=== PATIENT | male | born 1945 | race Two or more races ===

== ENCOUNTER 2018-08-27 15:15 | Inpatient (IN) | payer MEDICARE, MEDICAID ==
[~2018-08-27] VITALS: Ht 165.1 cm; Wt 68.0 kg
[2018-08-27] MEDS ORDERED: PANTOPRAZOLE SODIUM 40 MG VIAL IV ONE (15:45)
--- NOTE | 2018-08-27 16:00 | NUR ---
Pt. BIB [facility] for blood in stool, Jamaican speaking, denies pain, A/Ox4, RR even and unlabored, speaks in clear and complete sentences, PICC line patent and intact to MARTA
[2018-08-27 16:16] LABS: BASOPHILS # (AUTO) 0.1 K/uL (0.0-8.0); BASOPHILS % (AUTO) 0.9 % (0.0-2.0); EOSINOPHILS # (AUTO) 0.4 K/uL (0.0-0.7); EOSINOPHILS % (AUTO) 6.2 % (0.0-7.0); HEMATOCRIT 36.3 % (36.7-47.1); HEMOGLOBIN 12.3 g/dL (12.5-16.3); LYMPHOCYTES # (AUTO) 1.3 K/uL (20.0-40.0); LYMPHOCYTES % (AUTO) 19.3 % (20.5-51.5); MEAN CORPUSCULAR HEMOGLOBIN 31.2 uug (23.8-33.4); MEAN CORPUSCULAR HGB CONC 34 g/dL (32.5-36.3); MEAN CORPUSCULAR VOLUME 92.4 fL (73.0-96.2); MONOCYTES # (AUTO) 0.8 K/uL (2.0-10.0); NEUTROPHILS # (AUTO) 4.3 K/uL (1.8-8.9); NEUTROPHILS % (AUTO) 61.6 % (38.5-71.5); PLATELET COUNT (AUTO) 215 K/uL (152-348); RED BLOOD CELL COUNT(AUTO) 3.93 MIL/uL (4.06-5.63); WHITE BLOOD COUNT (AUTO) 6.9 K/uL (3.6-10.2)
[2018-08-27 16:24] LABS: CARBON DIOXIDE 29 mmol/L (21-32); CHLORIDE 100 mmol/L (98-107); CREATININE 1.1 mg/dL (0.6-1.3); GLUCOSE 126 mg/dL (74-106); POTASSIUM 4.1 mmol/L (3.5-5.1); UREA NITROGEN, BLOOD 20 mg/dL (7-18)
[2018-08-27] MEDS ORDERED: PANTOPRAZOLE SODIUM 40 MG VIAL ONE (16:35)
[2018-08-27 16:39] LABS: ALANINE AMINOTRANSFERASE 21 U/L (16-63); ALKALINE PHOSPHATASE 92 U/L (50-136); ASPARTATE AMINOTRANSFERASE 15 U/L (15-37); BILIRUBIN,DIRECT 0.1 mg/dL (0.0-0.2); BILIRUBIN,TOTAL 0.2 mg/dL (0.2-1.0); LIPASE 102 U/L (73-393); TOTAL PROTEIN, SERUM 6.1 g/dL (6.4-8.2)
[2018-08-27] MEDS ORDERED: AMPI500C11 IV (16:56)
[2018-08-27] MEDS ORDERED: ATOR40TA PO (16:56)
[2018-08-27] MEDS ORDERED: LEVE500T20 PO (16:56)
[2018-08-27] MEDS ORDERED: CEFT2VIA14 IV (16:56)
[2018-08-27] MEDS ORDERED: LOSA1TAB9 PO (16:56)
[2018-08-27] MEDS ORDERED: MULT-213 PO (16:56)
[2018-08-27] MEDS ORDERED: SPIR25TA6 PO (16:56)
[2018-08-27] MEDS ORDERED: PANT40TA4 PO (16:56)
[2018-08-27] MEDS ORDERED: LOSA50TA39 PO (16:56)
[2018-08-27] MEDS ORDERED: FINA5TAB11 PO (16:56)
[2018-08-27] MEDS ORDERED: ONDANSETRON 4 MG/2 ML VIAL IV PRN (18:15)
[2018-08-27] MEDS ORDERED: MAGNESIUM HYDROXIDE 30 ML LIQUID UDC PO PRN (18:15)
[2018-08-27] MEDS ORDERED: Z GUARD REMEDY PASTE 57 GM TUBE TOP PRN (18:15)
--- NOTE | 2018-08-27 18:22 | NUR ---
Gave report to Polina HELMS,
--- NOTE | 2018-08-27 18:48 | NUR ---
Pt. taken off unit via stretcher, NAD
--- NOTE | 2018-08-27 19:50 | NUR ---
RECEIVED PATIENT IN BED. REPORT RECEIVED FROM CHARGE NURSE CONSUELO. FAMILY AND FRIENDS AT BEDSIDE. PT IS ALERT AND ORIENTED X3. DENIES PAIN. RAILS PADDED FOR SEIZURE PRECAUTIONS. PT WAS CONNECTED TO HEART MONITOR. VITAL SIGNS TAKEN. COMFORT AND SAFETY PROVIDED. WILL CONTINUE TO MONITOR.
[2018-08-27 20:20] VITALS: BP 173/76
--- NOTE | 2018-08-27 20:30 | NUR ---
PT WAS ASSESSED AND CHANGED INTO HOSPITAL GOWN. NO ACUTE DISTRESS NOTED. DENIES PAIN. SCD APPLIED. DISCUSSED PLAN OF CARE WITH MILK COLLECTOR. ON MONITOR BRADYCARDIA WITH FIRST DEGREE BLOCK AND ARRHYTHMIA. WILL CONTINUE TO MONITOR. COMFORT AND SAFETY PROVIDED.
[2018-08-27] MEDS ORDERED: AMPICILLIN 2 G in NS 100 ML IV SCH (22:00)
[2018-08-27] MEDS: ATORVASTATIN 40 MG TABLET PO SCH (22:22)
[2018-08-27] MEDS: DOCUSATE SODIUM 100 MG CAPSULE PO SCH (22:22)
[2018-08-27] MEDS: CEFTRIAXONE 2 G in IV DEXTROSE 5% 100 ML IV SCH (22:42)
[2018-08-27] MEDS ORDERED: AMPICILLIN 2 G VIAL ONE (23:28)
--- NOTE | 2018-08-27 23:30 | NUR ---
PTS SBP IS AROUND 175. AGRICULTURAL APPRAISER ORDERED CLONIDINE 0.1 MG TAB PO Q6H PRN FOR SBP ABOVE 160. PT BP IS TRENDING DOWN, HR IS FREQUENTLY BELOW 45, CLONIDINE NOT GIVEN FOR SAFETY CONCERNS. COMFORT AND SAFETY PROVIDED. WILL CONTINUE TO MONITOR. PICC LINE HAS BEEN FLUSHED AND RUNNING FLUIDS AT THIS TIME.
[2018-08-28] VITALS: BP 136/55
[2018-08-28] MEDS: AMPICILLIN 2 G in NS 100 ML IV SCH ×7 (00:07→23:11)
[2018-08-28 02:14] LABS: HEMATOCRIT 35.4 % (36.7-47.1); HEMOGLOBIN 12.1 g/dL (12.5-16.3)
[2018-08-28] MEDS ORDERED: CLONIDINE HCL 0.1 MG TABLET PO PRN (03:15)
[2018-08-28 04:00] VITALS: BP 130/61
[2018-08-28 06:28] LABS: BASOPHILS # (AUTO) 0.1 K/uL (0.0-8.0); BASOPHILS % (AUTO) 0.9 % (0.0-2.0); EOSINOPHILS # (AUTO) 0.4 K/uL (0.0-0.7); EOSINOPHILS % (AUTO) 6.3 % (0.0-7.0); HEMATOCRIT 36.5 % (36.7-47.1); HEMOGLOBIN 12.3 g/dL (12.5-16.3); LYMPHOCYTES # (AUTO) 1.1 K/uL (20.0-40.0); LYMPHOCYTES % (AUTO) 19.3 % (20.5-51.5); MEAN CORPUSCULAR HGB CONC 34 g/dL (32.5-36.3); MONOCYTES # (AUTO) 0.7 K/uL (2.0-10.0); MONOCYTES % (AUTO) 11.4 % (0.0-11.0); NEUTROPHILS # (AUTO) 3.7 K/uL (1.8-8.9); NEUTROPHILS % (AUTO) 62.1 % (38.5-71.5); PLATELET COUNT (AUTO) 210 K/uL (152-348); RED BLOOD CELL COUNT(AUTO) 3.97 MIL/uL (4.06-5.63); WHITE BLOOD COUNT (AUTO) 5.9 K/uL (3.6-10.2)
[2018-08-28] MEDS: ACETAMINOPHEN 325 MG TABLET PO PRN ×2 (06:29→16:49)
[2018-08-28 06:50] LABS: CARBON DIOXIDE 28 mmol/L (21-32); CHLORIDE 105 mmol/L (98-107); CHOLESTEROL 114 mg/dL (<200); CREATININE 0.9 mg/dL (0.6-1.3); GLUCOSE 90 mg/dL (74-106); HDL CHOLESTEROL 35 mg/dL (40-60); MAGNESIUM 1.8 mg/dL (1.8-2.4); PHOSPHOROUS 3.6 mg/dL (2.5-4.9); POTASSIUM 3.8 mmol/L (3.5-5.1); TRIGLYCERIDES 64 MG/DL (30-150); UREA NITROGEN, BLOOD 14 mg/dL (7-18)
[2018-08-28 06:55] LABS: THYROID STIMULATING HORMONE 0.495 mIU/mL (0.358-3.740)
--- NOTE | 2018-08-28 07:00 | NUR ---
PT SLEPT WELL THROUGH THE NIGHT. NO SEIZURES OBSERVED. ANTIBIOTICS PER ORDER HAVE BEEN INFUSED. PT REPORTS HEADACHE 10/09. OFFERED TYLENOL 650MG ORDERED. PT REFUSED AND DEMANDED HIGHER DOSE, BECAME AGITATED AND ANGRY. REPORT GIVEN TO DAY SHIFT RN. COMFORT AND SAFETY PROVIDED.
--- NOTE | 2018-08-28 07:10 | NUR ---
received report from [employer] travel counselor nurse, patient in bed awake, and agitated. Bed in low position, side rails up x2. Call light in reach.
[2018-08-28] MEDS: LEVETIRACETAM 500 MG TABLET PO SCH ×2 (08:54→16:50)
[2018-08-28] MEDS: SPIRONOLACTONE 25 MG TABLET PO SCH (08:54)
[2018-08-28] MEDS: FINASTERIDE 5 MG TABLET PO SCH (08:54)
[2018-08-28] MEDS: MULTIVIT, IRON, MIN NO. 8, FA TABLET PO SCH (08:55)
[2018-08-28] MEDS: PANTOPRAZOLE SODIUM 40 MG VIAL IV SCH ×2 (08:59→16:50)
[2018-08-28] MEDS ORDERED: LOSARTAN POTASSIUM 50 MG TABLET PO SCH (09:00)
[2018-08-28] MEDS ORDERED: FINASTERIDE 5 MG TABLET PO SCH (09:00)
[2018-08-28] MEDS ORDERED: Medication Not On Formulary EA (Multivitamins W-Minerals (Multivitamin With Minerals) 1 PO SCH (09:00)
[2018-08-28] MEDS: HYDROCODONE/APAP 5-325MG TABLET PO PRN (11:14)
[2018-08-28] MEDS ORDERED: LOSARTAN POTASSIUM 50 MG TABLET PO ONE (11:15)
[2018-08-28 11:47] VITALS: BP 139/63
[2018-08-28] MEDS: HYDROCHLOROTHIAZIDE 12.5 MG CAPSULE PO SCH (12:09)
[2018-08-28 15:26] VITALS: BP 116/40
--- NOTE | 2018-08-28 18:35 | NUR ---
patient has been cooperative with care, all needs met, no distress noted at this time, bed in low position, side rails upx2, call light in reach. patient was seen by Dr. Saxena.
--- NOTE | 2018-08-28 19:25 | NUR ---
RECEIVED PT AWAKE, ALERT AND ORIENTEDX4. PT AFGHAN SPEAKER BUT UNDERSTAND ARGENTINE. PT SHOWS NO SIGNS FO ACUTE DISTRESS. IV INTACT.SAFETY AND COMFORT PROVIDED. WILL CONTINUE TO MONITOR.
[2018-08-28] MEDS: DOCUSATE SODIUM 100 MG CAPSULE PO SCH (20:00)
[2018-08-28] MEDS: ATORVASTATIN 40 MG TABLET PO SCH (20:00)
[2018-08-28 20:04] VITALS: BP 112/44
[2018-08-28] MEDS: CEFTRIAXONE 2 G in IV DEXTROSE 5% 100 ML IV SCH (21:08)
[2018-08-29] MEDS: IV NS 1000 ML 1,000 ML IV PRN ×2 (00:35→14:40)
[2018-08-29 02:34] LABS: BASOPHILS # (AUTO) 0.1 K/uL (0.0-8.0); BASOPHILS % (AUTO) 0.9 % (0.0-2.0); EOSINOPHILS # (AUTO) 0.3 K/uL (0.0-0.7); EOSINOPHILS % (AUTO) 5.5 % (0.0-7.0); HEMATOCRIT 37.8 % (36.7-47.1); HEMOGLOBIN 12.7 g/dL (12.5-16.3); LYMPHOCYTES # (AUTO) 1.5 K/uL (20.0-40.0); LYMPHOCYTES % (AUTO) 25.4 % (20.5-51.5); MEAN CORPUSCULAR HEMOGLOBIN 30.7 uug (23.8-33.4); MEAN CORPUSCULAR HGB CONC 34 g/dL (32.5-36.3); MEAN CORPUSCULAR VOLUME 91.6 fL (73.0-96.2); MONOCYTES # (AUTO) 0.6 K/uL (2.0-10.0); MONOCYTES % (AUTO) 10.3 % (0.0-11.0); NEUTROPHILS # (AUTO) 3.5 K/uL (1.8-8.9); NEUTROPHILS % (AUTO) 57.9 % (38.5-71.5); PLATELET COUNT (AUTO) 201 K/uL (152-348); RED BLOOD CELL COUNT(AUTO) 4.12 MIL/uL (4.06-5.63); WHITE BLOOD COUNT (AUTO) 6.1 K/uL (3.6-10.2)
[2018-08-29 02:57] LABS: CARBON DIOXIDE 27 mmol/L (21-32); CHLORIDE 104 mmol/L (98-107); CREATININE 0.9 mg/dL (0.6-1.3); GLUCOSE 95 mg/dL (74-106); MAGNESIUM 1.8 mg/dL (1.8-2.4); POTASSIUM 4.2 mmol/L (3.5-5.1); UREA NITROGEN, BLOOD 12 mg/dL (7-18)
--- NOTE | 2018-08-29 03:48 | NUR ---
PT IRRITATED AND WANTS ALL HIS BLOOD WORKS DONE AT THE SAME TIME THIS MORNING. PT REFUSED HIS 2AM H AND H BLOOD WORK. RELATIONS LIAISON AWARE AND CHARGE NURSE AWARE OF THE SITUATION . PT STABLE. WILL CONTINUE TO MONITOR.
[2018-08-29] MEDS: AMPICILLIN 2 G in NS 100 ML IV SCH ×5 (04:29→19:20)
[2018-08-29] MEDS: HYDROCODONE/APAP 5-325MG TABLET PO PRN (04:30)
[2018-08-29 04:44] VITALS: BP 122/52
--- NOTE | 2018-08-29 05:48 | NUR ---
PT SLEPT INTERMITTENTLY PT SHOWS NO SIGNS OF ACUTE DISTRESS. PRESCRIBED MEDICATION GIVEN AND PT TOLERATED IT WELL. SAFETY AND COMFORT PROVIDED.ALL NEEDS ARE MET. WILL ENDORSE ACCORDINGLY TO INCOMING NURSE FOR CONTINUITY OF CARE.
[2018-08-29] MEDS: FINASTERIDE 5 MG TABLET PO SCH (08:57)
[2018-08-29] MEDS: SPIRONOLACTONE 25 MG TABLET PO SCH (08:57)
[2018-08-29] MEDS: PANTOPRAZOLE SODIUM 40 MG VIAL IV SCH ×2 (08:57→16:45)
[2018-08-29] MEDS: MULTIVIT, IRON, MIN NO. 8, FA TABLET PO SCH (08:57)
[2018-08-29] MEDS: LEVETIRACETAM 500 MG TABLET PO SCH ×2 (08:57→16:45)
[2018-08-29] MEDS: HYDROCHLOROTHIAZIDE 12.5 MG CAPSULE PO SCH (08:58)
[2018-08-29] MEDS ORDERED: LOSARTAN POTASSIUM 50 MG TABLET PO SCH (09:00)
[2018-08-29 11:44] VITALS: BP 128/63
--- NOTE | 2018-08-29 13:30 | NUR ---
SEEN BY AIR HOIST OPERATOR FOR FOLLOW-UP, PLAN DC TO [place] AND FOLLOW-UP AN OUT-PATIENT FOR SCOPE
[2018-08-29] MEDS ORDERED: HYDR12.517 PO (15:57)
[2018-08-29] MEDS ORDERED: DOCU100C36 PO (15:57)
[2018-08-29] MEDS ORDERED: LOSA50TA3 PO (15:57)
[2018-08-29 16:05] VITALS: BP 133/73
--- NOTE | 2018-08-29 17:00 | NUR ---
MICHEL TREJO NOTIFEID OF BLOODY STOOL NO NEW ORDERS, CONTINUE DC PLANNING ORDERED
--- NOTE | 2018-08-29 18:40 | NUR ---
PATIENT TO BE DCD TO [facility] FOR CONTINUITY OF CARE. REPORT GIVEN TO ARU STAFF
[2018-08-29] MEDS: CEFTRIAXONE 2 G in IV DEXTROSE 5% 100 ML IV SCH (20:10)
[2018-08-29 20:17] VITALS: BP 125/62
[2018-08-29] MEDS: DOCUSATE SODIUM 100 MG CAPSULE PO SCH (21:00)
[2018-08-29] MEDS: ATORVASTATIN 40 MG TABLET PO SCH (21:00)
--- NOTE | 2018-08-29 23:37 | NUR ---
Patient is discharged in improved condition; pt received his evening antibiotics, ampicillin and rocephin; picked up by ambulance service with PICC line intact; THR aware of late dc;
== END 2018-08-29 22:30 | DRG 393 ==
LOC: ER 15:18 → TELE3 18:41
PROVIDERS: ADMIT Registered Nurse; ATTEND Registered Nurse
DX: K64.9 Unspecified hemorrhoids (principal); G92 Toxic encephalopathy; E44.1 Mild protein-calorie malnutrition; I44.1 Atrioventricular block, second degree; I35.8 Other nonrheumatic aortic valve disorders; Z68.25 Body mass index [BMI] 25.0-25.9, adult; D64.9 Anemia, unspecified; G40.909 Epilepsy, unspecified, not intractable, without status epilepticus; K80.20 Calculus of gallbladder without cholecystitis without obstruction; K57.30 Diverticulosis of large intestine without perforation or abscess without bleeding; Z79.899 Other long term (current) drug therapy; K21.9 Gastro-esophageal reflux disease without esophagitis; N40.0 Benign prostatic hyperplasia without lower urinary tract symptoms; Z85.841 Personal history of malignant neoplasm of brain; F03.90 Unspecified dementia, unspecified severity, without behavioral disturbance, psychotic disturbance, mood disturbance, and anxiety; R79.89 Other specified abnormal findings of blood chemistry; R00.1 Bradycardia, unspecified; E78.5 Hyperlipidemia, unspecified; I10 Essential (primary) hypertension
CPT/HCPCS: 36415; 70030-TC; 71045; 83690; 83735; 84100; 84443; 85018; 85025; 85730; 86850; 86900; 86901; 87040; 93005; 93307; A4663; C9113; G0378; J0290; J0696; J3490; J7030; J7060